=== PATIENT | female | born 2005 | race African-American/Black ===

== ENCOUNTER 2024-06-10 17:20 | Emergency (ER) | payer MEDICAID ==
[~2024-06-10] VITALS: Ht 162.6 cm; Wt 61.0 kg
[2024-06-10 17:23] VITALS: O2SAT 98
[2024-06-10 18:04] LABS: CLARITY URINE CLOUDY (CLEAR); COLOR URINE YELLOW (YELLOW); GLUCOSE URINE NEGATIVE (NEGATIVE); KETONES URINE TRACE (NEGATIVE); LEUKOCYTE ESTERASE URINE 2+ (NEGATIVE); NITRITE URINE NEGATIVE (NEGATIVE); OCCULT BLOOD URINE 3+ (NEGATIVE); PH URINE 6.5 (4.5-8.0); PROTEIN URINE 2+ (NEGATIVE); SPECIFIC GRAVITY URINE 1.029 (1.005-1.030)
[2024-06-10 18:24] LABS: MUCUS URINE 2+ /lpf (< = 2+); SQUAMOUS EPITHELIAL CELL URINE 2+ /lpf (RARE/1+)
[2024-06-10 18:27] LABS: RBC URINE 25-50 /hpf (0-2)
[2024-06-10 18:28] LABS: BACTERIA URINE 2+; WBC URINE 50-100 /hpf (0-2)
[2024-06-10] MEDS ORDERED: NITR-87 MT (19:25)
[2024-06-10 19:54] VITALS: BP 116/73; PULSE 68; RESP 20; TEMP 98.6
== END 2024-06-10 19:58 | disposition home or self-care (01) ==
LOC: ER 17:20
DX: N39.0 Urinary tract infection, site not specified (principal)
CPT/HCPCS: 81003; 87077; 87186; 99283